=== PATIENT | female | born 1990 | race Hispanic/Latino ===

== ENCOUNTER 2024-08-27 23:41 | Emergency (ER) | payer OTHER ==
[~2024-08-27] VITALS: Ht 154.9 cm; Wt 73.9 kg
[2024-08-27 23:43] VITALS: TEMP 98.1
--- NOTE | 2024-08-27 23:50 | NUR ---
C-COLLAR IN PLACE
[2024-08-27 23:52] VITALS: BP 145/90; PULSE 80; RESP 18; O2SAT 100
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
[2024-08-28] MEDS: ketOROlac 60 MG VIAL (30MG/ML) IM ONE (00:15)
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
[2024-08-28] MEDS ORDERED: CYCL-309 PO (01:40)
[2024-08-28] MEDS ORDERED: IBUP-2077 PO (01:40)
== END 2024-08-28 01:59 | disposition home or self-care (01) ==
LOC: EDH 23:41
DX: S16.1XXA Strain of muscle, fascia and tendon at neck level, initial encounter (principal); G44.309 Post-traumatic headache, unspecified, not intractable; Z90.49 Acquired absence of other specified parts of digestive tract; Z98.51 Tubal ligation status; V89.2XXA Person injured in unspecified motor-vehicle accident, traffic, initial encounter; Y93.89 Activity, other specified; Y92.89 Other specified places as the place of occurrence of the external cause; Y99.8 Other external cause status
CPT/HCPCS: 99285; 72125; 96372; J1885